=== PATIENT | male | born 1960 | race African-American/Black ===

== ENCOUNTER 2018-12-21 08:02 | Emergency (ER) | payer MEDICAID ==
[~2018-12-21] VITALS: Ht 182.9 cm; Wt 83.0 kg
[2018-12-21] MEDS ORDERED: ONDANSETRON HCL 4MG/2ML INJ IV ONE (08:30)
[2018-12-21] MEDS ORDERED: KETOROLAC 30MG/ML VIAL IV ONE (08:30)
[2018-12-21] MEDS ORDERED: KETOROLAC 60MG/2ML VIAL IM ONE (09:00)
[2018-12-21] MEDS ORDERED: ONDANSETRON HCL 4MG TABLET PO ONE (09:00)
[2018-12-21 09:57] LABS: BASOPHILS % 0.6 % (0.0-2.0); EOSINOPHILS % 0.6 % (0.0-5.0); HEMOGLOBIN. 14.5 g/dL (14.0-18.0); LYMPHOCYTES % 21.9 % (20.0-50.0); MEAN CORPUSCULAR HEMOGLOBIN 39.1 pg (28.0-32.0); MEAN CORPUSCULAR VOLUME 110.6 fL (80.0-94.0); NEUTROPHILS % 72.9 % (40.0-76.0); PLATELET 188 x1000/uL (130-400); RED BLOOD CELL COUNT 3.71 mill/uL (4.7-6.1); RED CELL DISTRIBUTION WIDTH 17.6 % (11.6-14.6)
[2018-12-21 10:36] LABS: CHLORIDE 104 mEq/L (98-107)
[2018-12-21 12:25] LABS: INR 1.8; PROTHROMBIN TIME 18.3 sec (9.1-11.1)
[2018-12-21] MEDS ORDERED: BACITRACIN 15GM TUBE TOP ONE (13:15)
[2018-12-21] MEDS ORDERED: BACITRACIN ZINC OINT UDPKT TOP NR (16:30)
[2018-12-21 16:58] VITALS: BP 126/73
== END 2018-12-21 16:50 | disposition home or self-care (01) ==
LOC: ER 08:02
DX: K80.50 Calculus of bile duct without cholangitis or cholecystitis without obstruction (principal); F17.200 Nicotine dependence, unspecified, uncomplicated; F11.10 Opioid abuse, uncomplicated
CPT/HCPCS: 36415; 74176; 76705; 80053; 83690; 85025; 85610; 93005; 96372; 99284; Q0162; J1885; J2405

== ENCOUNTER 2019-01-16 13:13 | Inpatient (IN) | payer OTHER, MEDICAID ==
[~2019-01-16] VITALS: Ht 177.8 cm; Wt 84.9 kg
[2019-01-16] MEDS ORDERED: LORAZEPAM 2MG/ML CPJ IV STA (15:29)
[2019-01-16] MEDS ORDERED: SODIUM CHLORIDE 0.9% 1,000 ML IV ONE (15:29)
[2019-01-16] MEDS ORDERED: ONDANSETRON HCL 4MG/2ML INJ IV STA (15:29)
[2019-01-16 15:54] LABS: HEMATOCRIT. 36.8 % (42.0-52.0); HEMOGLOBIN. 12.4 g/dL (14.0-18.0); MEAN CORPUSCULAR HEMOGLOBIN 39.8 pg (28.0-32.0); MEAN CORPUSCULAR VOLUME 118.1 fL (80.0-94.0); MEAN PLATELET VOLUME 8.9 fl (7.4-10.4); PLATELET 66 x1000/uL (130-400); RED BLOOD CELL COUNT 3.12 mill/uL (4.7-6.1); RED CELL DISTRIBUTION WIDTH 16.4 % (11.6-14.6)
[2019-01-16 15:57] LABS: CHLORIDE 102 mEq/L (98-107)
[2019-01-16 16:02] LABS: ETHANOL BLOOD 133 mg/dL
[2019-01-16 16:06] LABS: CREATINE KINASE 624 IU/L (39-308)
[2019-01-16 16:09] LABS: CREATINE KINASE MB FRACTION 10.7 ng/mL (0.5-3.6)
[2019-01-16 16:11] LABS: INR 3.3
[2019-01-16 16:17] LABS: PROTHROMBIN TIME 32.6 sec (9.6-11.0)
[2019-01-16] MEDS ORDERED: FOLIC ACID 1 MG, THIAMINE HCL 100 MG, MVI, ADULT NO.1 10 ML in DEXTROSE 5% WATER 1,000 ML IV ONE ×4 (17:30)
[2019-01-16 18:39] LABS: PLATELET ESTIMATE DECREASED
[2019-01-16 23:00] VITALS: BP 109/81
[2019-01-17] VITALS (38 sets, daily range): BP systolic 88–115; BP diastolic 48–75
[2019-01-17] MEDS ORDERED: IPRATROPIUM/ALBUTEROL 0.5-3(2.5)MG/3ML NEB HHN PRN ×2 (01:15→16:15)
[2019-01-17] MEDS ORDERED: LORAZEPAM 2MG/ML CPJ IV PRN (01:30)
[2019-01-17] MEDS ORDERED: IPRATROPIUM/ALBUTEROL 0.5-3(2.5)MG/3ML NEB INH PRN (01:30)
[2019-01-17] MEDS ORDERED: ONDANSETRON HCL 4MG/2ML INJ IV PRN (01:30)
[2019-01-17 06:26] LABS: HEMATOCRIT. 40.5 % (42.0-52.0); HEMOGLOBIN. 13.3 g/dL (14.0-18.0); MEAN CORPUSCULAR HEMOGLOBIN 39.6 pg (28.0-32.0); MEAN CORPUSCULAR VOLUME 120.8 fL (80.0-94.0); MEAN PLATELET VOLUME 8.2 fl (7.4-10.4); PLATELET 58 x1000/uL (130-400); RED BLOOD CELL COUNT 3.36 mill/uL (4.7-6.1); RED CELL DISTRIBUTION WIDTH 16.7 % (11.6-14.6)
[2019-01-17] MEDS ORDERED: DEXT 5%/0.45% NACL KCL 20MEQ/L 1,000 ML IV NR (09:00)
[2019-01-17] MEDS: PANTOPRAZOLE SODIUM 40 MG/VIAL IV SCH (09:21)
[2019-01-17] MEDS: LEVOTHYROXINE SODIUM 50MCG TABLET PO SCH (09:21)
[2019-01-17 10:36] LABS: PLATELET ESTIMATE MARKEDLY DECREASED
[2019-01-17 11:30] LABS: CREATINE KINASE 938 IU/L (39-308)
[2019-01-17] MEDS ORDERED: FUROSEMIDE 40MG/4ML VIAL IVP NR (15:45)
[2019-01-17] MEDS ORDERED: MVI, ADULT NO.1 10 ML, FOLIC ACID 1 MG, THIAMINE HCL 100 MG in SODIUM CHLORIDE 0.9% 1,0... IV NR ×4 (16:00)
[2019-01-17] MEDS ORDERED: SODIUM BICARBONATE 8.4% 1 MEQ/ML 50ML SYR IV NR (16:15)
[2019-01-17] MEDS: MIDAZOLAM HCL 100 MG in DEXT 5% WATER 80 ML IV PRN (16:23)
[2019-01-17] MEDS: FENTANYL CITRATE/PF 500 MCG in SODIUM CHLORIDE 0.9% 40 ML IV PRN ×2 (16:24→19:11)
[2019-01-17] MEDS: PENTOXIFYLLINE 400MG TABLET PO SCH (16:30)
[2019-01-17] MEDS ORDERED: ALBUMIN HUMAN 25GM/100ML (25%) IV NR (16:40)
[2019-01-17] MEDS ORDERED: SODIUM CHLORIDE 0.9% 10ML VIAL ONE (17:00)
[2019-01-17] MEDS ORDERED: MIDODRINE HCL 5MG TABLET PO SCH (17:00)
[2019-01-17] MEDS ORDERED: CITRIC ACID/SODIUM CITRATE SOLN 30ML UDC PO SCH (17:00)
[2019-01-17] MEDS ORDERED: ETOMIDATE 2MG/ML 10ML VIAL IV ONE (17:00)
[2019-01-17] MEDS ORDERED: VECURONIUM BROMIDE 10 MG/VIAL IV ONE (17:00)
[2019-01-17 17:04] LABS: BG BASE EXCESS -13.6 mmol/L (-2.0-2.0); BG CARBOXYHEMOGLOBIN 0.4 % (0.5-1.5); BG DEOXYHEMOGLOBIN 0.4 % (0.0-5.0); BG FRACTION INSPIRED OXYGEN 60; BG HCO3 ACT 13.7 mmol/L (22.0-26.0); BG METHEMOGLOBIN 0.4 % (0.0-1.5); BG OXYGEN SATURATION 99.6 % (92.0-98.5); BG OXYHEMOGLOBIN 98.8 % (94.0-97.0); BG PCO2 36.6 mmHg (35.0-45.0); BG PO2 226.2 mmHg (75.0-100.0); BG SAMPLE SITE RIGHT BRACHIAL; BG TIDAL VOLUME(mL) 500 mL; BG TOTAL HEMOGLOBIN 12.5 g/dL (12.0-18.0); BG VENT MODE VENT - A/C; BG VENT RATE 14 set
[2019-01-17 17:18] LABS: T4 FREE 1.09 ng/dL (0.76-1.46)
[2019-01-17] MEDS: IPRATROPIUM/ALBUTEROL 0.5-3(2.5)MG/3ML NEB HHN SCH ×2 (17:32→20:33)
[2019-01-17] MEDS: BUDESONIDE 0.5MG/2ML NEB HHN SCH ×2 (17:33→20:33)
[2019-01-17] MEDS ORDERED: PIPERACILLIN/TAZ 3.375G PREMIX 50 ML IV NR (18:00)
[2019-01-17] MEDS ORDERED: VANCOMYCIN 1500MG in DEXTROSE 5% WATER 250ML IV NR (18:30)
[2019-01-17 19:23] LABS: PROSTRATE SPECIFIC AG TOTAL 0.18 ng/mL (0.0-4.0)
[2019-01-17 19:24] LABS: CARCINO EMBRYONIC ANTIGEN 2.1 ng/ml
[2019-01-17 19:44] LABS: CLARITY URINE CLEAR (CLEAR); COLOR URINE AMBER (YELLOW); KETONES URINE NEGATIVE (NEGATIVE); LEUKOCYTE ESTERASE URINE NEGATIVE (NEGATIVE); NITRITE URINE NEGATIVE (NEGATIVE); OCCULT BLOOD URINE NEGATIVE (NEGATIVE); PROTEIN URINE 1+ (NEGATIVE); SPECIFIC GRAVITY URINE 1.019 (1.005-1.030)
[2019-01-17] MEDS ORDERED: IPRATROPIUM/ALBUTEROL 0.5-3(2.5)MG/3ML NEB HHN SCH (20:00)
[2019-01-17 20:10] LABS: *AMPHETAMINES SCREEN URINE NEGATIVE (NEGATIVE); *BARBITURATES SCREEN URINE NEGATIVE (NEGATIVE); *BENZODIAZEPINES SCREEN URINE NEGATIVE (NEGATIVE); CANNABINOID URINE SCREEN NEGATIVE (NEGATIVE); PHENCYCLIDINE URINE SCREEN NEGATIVE (NEGATIVE)
[2019-01-17 20:12] LABS: *COCAINE SCREEN URINE PRESUMTIVE POSITIVE (NEGATIVE); METHADONE URINE SCREEN NEGATIVE (NEGATIVE); OPIATES URINE SCREEN NEGATIVE (NEGATIVE)
[2019-01-17 20:17] LABS: SODIUM URINE RANDOM < 5 mEq/L
[2019-01-17] MEDS: LACTULOSE 20G/30ML UDC PO SCH (20:53)
[2019-01-17 23:17] LABS: CREATINE KINASE MB FRACTION 16.8 ng/mL (0.5-3.6)
[2019-01-18] VITALS (102 sets, daily range): BP systolic 53–118; BP diastolic 26–77
[2019-01-18] MEDS: IPRATROPIUM/ALBUTEROL 0.5-3(2.5)MG/3ML NEB HHN SCH ×6 (00:13→20:48)
[2019-01-18] MEDS: PIPERACILLIN/TAZ 3.375G PREMIX 50 ML IV SCH ×4 (00:22→19:17)
[2019-01-18] MEDS: FENTANYL CITRATE/PF 500 MCG in SODIUM CHLORIDE 0.9% 40 ML IV PRN ×2 (01:58→22:13)
[2019-01-18] MEDS: NOREPINEPHRINE 16 MG in DEXT 5% WATER 484 ML IV PRN ×2 (01:59→12:58)
[2019-01-18 05:34] LABS: HEMATOCRIT. 38.1 % (42.0-52.0); HEMOGLOBIN. 12.5 g/dL (14.0-18.0); MEAN CORPUSCULAR HEMOGLOBIN 39.3 pg (28.0-32.0); MEAN CORPUSCULAR VOLUME 120.3 fL (80.0-94.0); RED BLOOD CELL COUNT 3.17 mill/uL (4.7-6.1); RED CELL DISTRIBUTION WIDTH 16.8 % (11.6-14.6)
[2019-01-18 05:41] LABS: CHLORIDE 101 mEq/L (98-107)
[2019-01-18 05:50] LABS: PHOSPHORUS 5.8 mg/dL (2.5-4.9)
[2019-01-18 05:52] LABS: CREATINE KINASE MB FRACTION 14.2 ng/mL (0.5-3.6)
[2019-01-18 05:53] LABS: CREATINE KINASE 413 IU/L (39-308)
[2019-01-18] MEDS ORDERED: VANCOMYCIN 1250MG in DEXTROSE 5% WATER 250ML IV SCH (06:00)
[2019-01-18] MEDS: LACTULOSE 20G/30ML UDC PO SCH ×2 (06:27→15:31)
[2019-01-18] MEDS: LEVOTHYROXINE SODIUM 50MCG TABLET PO SCH (06:27)
[2019-01-18] MEDS: PENTOXIFYLLINE 400MG TABLET PO SCH ×3 (06:27→17:00)
[2019-01-18] MEDS: PHENYLEPHRINE 40 MG in DEXT 5% WATER 496 ML IV PRN ×4 (06:40→18:18)
[2019-01-18] MEDS ORDERED: ALBUMIN HUMAN 25GM/100ML (25%) IV SCH (08:00)
[2019-01-18] MEDS ORDERED: SODIUM BICARBONATE 8.4% 1 MEQ/ML 50ML SYR IV SCH (08:00)
[2019-01-18] MEDS: MIDODRINE HCL 5MG TABLET PO SCH ×3 (08:08→17:00)
[2019-01-18 08:09] LABS: BG BASE EXCESS -9.6 mmol/L (-2.0-2.0); BG CARBOXYHEMOGLOBIN 0.5 % (0.5-1.5); BG DEOXYHEMOGLOBIN 2.5 % (0.0-5.0); BG FRACTION INSPIRED OXYGEN 50; BG HCO3 ACT 14.3 mmol/L (22.0-26.0); BG METHEMOGLOBIN 0.5 % (0.0-1.5); BG OXYGEN SATURATION 97.5 % (92.0-98.5); BG OXYHEMOGLOBIN 96.5 % (94.0-97.0); BG PCO2 26.9 mmHg (35.0-45.0); BG PH 7.344 (7.350-7.450); BG PO2 106.9 mmHg (75.0-100.0); BG SAMPLE SITE RIGHT RADIAL; BG TIDAL VOLUME(mL) 500 mL; BG TOTAL HEMOGLOBIN 14.4 g/dL (12.0-18.0); BG VENT MODE VENT - A/C; BG VENT RATE 22 set
[2019-01-18] MEDS: BUDESONIDE 0.5MG/2ML NEB HHN SCH (08:24)
[2019-01-18] MEDS ORDERED: MVI, ADULT NO.1 10 ML, FOLIC ACID 1 MG, THIAMINE HCL 100 MG in SODIUM CHLORIDE 0.9% 1,0... IV SCH ×4 (09:00)
[2019-01-18] MEDS: CITRIC ACID/SODIUM CITRATE SOLN 30ML UDC PO SCH ×3 (09:08→17:00)
[2019-01-18] MEDS: PANTOPRAZOLE SODIUM 40 MG/VIAL IV SCH (09:46)
[2019-01-18] MEDS ORDERED: LIDOCAINE HCL 1% 20ML VIAL (Pyxis) INJ ONE (10:52)
[2019-01-18] MEDS ORDERED: VASOPRESSIN 10 UNIT in SODIUM CHLORIDE 0.9% 99.5 ML IV PRN (11:00)
[2019-01-18 11:21] LABS: HEPATITIS B SURFACE ANTIGEN NEGATIVE
[2019-01-18 11:51] LABS: HEPATITIS A AB IGM NEGATIVE (NEGATIVE)
[2019-01-18 13:29] LABS: PARTIAL THROMBOPLASTIN TIME 73.8 sec (23.4-31.0)
[2019-01-18 13:45] LABS: PROTHROMBIN TIME > 100.0 sec (9.6-11.0)
[2019-01-18 13:47] LABS: INR > 10.0
[2019-01-18 14:26] LABS: MEAN PLATELET VOLUME 9.7 fl (7.4-10.4)
[2019-01-18] MEDS ORDERED: EPINEPHRINE 1 MG in SODIUM CHLORIDE 0.9% 249 ML IV PRN (14:45)
[2019-01-18] MEDS: EPINEPHRINE 4 MG in SODIUM CHLORIDE 0.9% 246 ML IV PRN ×2 (17:02→23:01)
[2019-01-18] MEDS ORDERED: PHENYLEPHRINE 40 MG in DEXT 5% WATER 246 ML IV PRN (19:17)
[2019-01-18] MEDS ORDERED: NOREPINEPHRINE 16 MG in DEXT 5% WATER 234 ML IV PRN (19:18)
[2019-01-18] MEDS ORDERED: PHENYLEPHRINE 80 MG in DEXT 5% WATER 492 ML IV PRN (23:24)
[2019-01-18] MEDS ORDERED: NOREPINEPHRINE 32 MG in DEXT 5% WATER 468 ML IV PRN (23:28)
[2019-01-18] MEDS ORDERED: EPINEPHRINE 8 MG in SODIUM CHLORIDE 0.9% 492 ML IV PRN (23:30)
[2019-01-19] VITALS (25 sets, daily range): BP systolic 0–85; BP diastolic 0–46
[2019-01-19] MEDS: PIPERACILLIN/TAZ 3.375G PREMIX 50 ML IV SCH ×2 (00:02→05:08)
[2019-01-19] MEDS: IPRATROPIUM/ALBUTEROL 0.5-3(2.5)MG/3ML NEB HHN SCH ×2 (00:16→03:41)
[2019-01-19] MEDS: BUDESONIDE 0.5MG/2ML NEB HHN SCH (00:16)
[2019-01-19] MEDS: MIDAZOLAM HCL 100 MG in DEXT 5% WATER 80 ML IV PRN (00:27)
[2019-01-19 04:13] LABS: HIV SCREEN 4G Non Reactive (Non Reactive)
[2019-01-19] MEDS ORDERED: VANCOMYCIN 1250MG in DEXTROSE 5% WATER 250ML IV SCH (06:00)
[2019-01-19] MEDS: PENTOXIFYLLINE 400MG TABLET PO SCH (06:01)
[2019-01-19] MEDS: LEVOTHYROXINE SODIUM 50MCG TABLET PO SCH (06:01)
[2019-01-19] MEDS ORDERED: SODIUM BICARBONATE 7.5% 0.9 MEQ/ML 50ML SYR IV ONE (06:12)
[2019-01-19] MEDS ORDERED: DEXTROSE 50% WATER 50ML SYRINGE IV ONE (06:12)
[2019-01-19] MEDS ORDERED: EPINEPHRINE 0.1MG/ML (1:10,000) 10ML SYR ONE (06:12)
[2019-01-19] MEDS ORDERED: LACTULOSE 20G/30ML UDC PO SCH (09:00)
== END 2019-01-19 07:00 | disposition expired | DRG 720 ==
LOC: ER 13:13 → 6WST 17:52 → ENRESERV 20:20 → MICUSO 01-17 15:35
PROVIDERS: ADMIT Internal Medicine; ATTEND Internal Medicine
PROC: 5A1945Z Respiratory Ventilation, 24-96 Consecutive Hours (ICD-10-PCS; principal; 2019-01-17)
PROC: 0BH17EZ Insertion of Endotracheal Airway into Trachea, Via Natural or Artificial Opening (ICD-10-PCS; 2019-01-17)
PROC: 02HV33Z Insertion of Infusion Device into Superior Vena Cava, Percutaneous Approach (ICD-10-PCS; 2019-01-18)
PROC: B548ZZA Ultrasonography of Superior Vena Cava, Guidance (ICD-10-PCS; 2019-01-18)
PROC: 5A12012 Performance of Cardiac Output, Single, Manual (ICD-10-PCS; 2019-01-19)
PROC: 30233K1 Transfusion of Nonautologous Frozen Plasma into Peripheral Vein, Percutaneous Approach (ICD-10-PCS; 2019-01-19)
DX: A41.50 Gram-negative sepsis, unspecified (principal); J96.00 Acute respiratory failure, unspecified whether with hypoxia or hypercapnia; D65 Disseminated intravascular coagulation [defibrination syndrome]; N17.0 Acute kidney failure with tubular necrosis; E43 Unspecified severe protein-calorie malnutrition; J18.9 Pneumonia, unspecified organism; R65.21 Severe sepsis with septic shock; G92 Toxic encephalopathy; I46.9 Cardiac arrest, cause unspecified; J90 Pleural effusion, not elsewhere classified; E87.1 Hypo-osmolality and hyponatremia; K72.90 Hepatic failure, unspecified without coma; M62.82 Rhabdomyolysis; D64.9 Anemia, unspecified; E86.0 Dehydration; E03.9 Hypothyroidism, unspecified; I48.91 Unspecified atrial fibrillation; K70.31 Alcoholic cirrhosis of liver with ascites; F10.129 Alcohol abuse with intoxication, unspecified; D68.9 Coagulation defect, unspecified; F11.10 Opioid abuse, uncomplicated; F14.90 Cocaine use, unspecified, uncomplicated; T40.5X1A Poisoning by cocaine, accidental (unintentional), initial encounter; I51.7 Cardiomegaly; I82.411 Acute embolism and thrombosis of right femoral vein; J98.11 Atelectasis; L97.919 Non-pressure chronic ulcer of unspecified part of right lower leg with unspecified severity; K80.20 Calculus of gallbladder without cholecystitis without obstruction; L97.929 Non-pressure chronic ulcer of unspecified part of left lower leg with unspecified severity; N39.0 Urinary tract infection, site not specified; K76.9 Liver disease, unspecified; X58.XXXA Exposure to other specified factors, initial encounter; R74.0 Nonspecific elevation of levels of transaminase and lactic acid dehydrogenase [LDH]; T79.A3XA Traumatic compartment syndrome of abdomen, initial encounter; F19.10 Other psychoactive substance abuse, uncomplicated; Y90.6 Blood alcohol level of 120-199 mg/100 ml; Z59.0 Homelessness; Y92.89 Other specified places as the place of occurrence of the external cause; Z82.49 Family history of ischemic heart disease and other diseases of the circulatory system; Z99.3 Dependence on wheelchair; Z68.26 Body mass index [BMI] 26.0-26.9, adult
CPT/HCPCS: 31500; 36415; 36569; 36600; 71045; 74176; 76937; 78580; 80048; 80061; 80305; 80307; 80320; 80329; 82105; 82140; 82375; 82378; 82550; 82553; 82805; 82962; 83036; 83605; 83615; 83735; 83880; 84100; 84153; 84300; 84439; 84443; 84450; 84460; 84484; 85379; 85384; 86300; 86301; 86705; 86709; 86803; 86850; 86900; 86927; 87070; 87077; 87186; 87340; 87389; 92610; 93005; 93306; 93970; 94002; 94003; 94640; 96374; 96375; 99285; C1725; C9113; J2060; J2250; J2370; J2405; J2543; J3010; J3370; J3411; J3490; J7030; J7040; J7050; J7060; J7070; J7620; J7626; P9017; P9047; A4315; G0103; G0480